=== PATIENT | female | born 1985 | race African-American/Black ===

== ENCOUNTER 2016-05-18 17:19 | Inpatient (IN) | payer MEDICAID ==
[2016-05-18 18:12] VITALS: BP 114/79
[2016-05-18] MEDS ORDERED: Morphine Sulfate 2 mg/mL 1mL Syr IVP PRN (18:47)
[2016-05-18] MEDS ORDERED: D5-0.9%NS 1,000 ML IV SCH (19:00)
[2016-05-18] MEDS: HYDROmorphone 1 mg/mL 1mL Syr IVP PRN ×2 (19:59→23:00)
[2016-05-18] MEDS ORDERED: Maalox 30 mL Cup PO PRN (20:00)
[2016-05-18] MEDS ORDERED: guaiFENesin 200 MG/10 ML UDC PO PRN (20:00)
[2016-05-18] MEDS ORDERED: Albuterol Nebulizer 2.5mg/3mL IH PRN (20:00)
[2016-05-18] MEDS: Sodium Chloride 0.9% 1,000 ML IV SCH (20:56)
[2016-05-19] MEDS: HYDROmorphone 1 mg/mL 1mL Syr IVP PRN ×7 (01:24→20:18)
[2016-05-19] MEDS: Sodium Chloride 0.9% 1,000 ML IV SCH ×2 (06:33→20:32)
[2016-05-19 07:30] LABS: HEMATOCRIT 28.8 % (35.0-45.0); HEMOGLOBIN 9.6 gm/dL (11.7-15.5); MEAN CELL VOLUME 74.3 fl (81-100); MEAN CORPUSCULAR HEMOGLOBIN 24.7 pg (27.0-31.0); MEAN CORPUSCULAR HGB CONC 33.2 pg (28.0-36.0); MEAN PLATELET VOLUME 9.1 fl; PLATELET COUNT 114 Th/cmm (150-400); RED BLOOD COUNT 3.87 Mil/cmm (3.80-5.10); RED CELL DISTRIBUTION WIDTH 16.3 % (11.5-20.0)
[2016-05-19 07:43] LABS: ALB/GLOB RATIO 1.5 (1.0-1.8); ALKALINE PHOSPHATASE 62 U/L (34-104); ANION GAP 5.3 (7.0-16.0); BILIRUBIN,TOTAL 2.1 mg/dL (0.3-1.0); BUN - UREA NITROGEN 11 mg/dL (7-25); BUN/CREATININE RATIO 18.3; CALCIUM SERUM 8.3 mg/dL (8.6-10.3); CARBON DIOXIDE 22.2 mEq/L (21.0-31.0); CHLORIDE 111 mEq/L (98-107); CREATININE - SERUM 0.6 mg/dL (0.6-1.2); GLUCOSE 153 mg/dL (70-105); LDH = LACTIC DEHYDROGENASE 786 U/L (140-271); POTASSIUM SERUM 3.5 mEq/L (3.5-5.1); SGOT 32 U/L (13-39); SGPT/ALT 13 U/L (7-52); SODIUM SERUM 135 mEq/L (136-145)
[2016-05-19] MEDS: Pantoprazole 40 mg EC Tab PO SCH (08:26)
[2016-05-19 10:51] LABS: NEUTROPHILS 82 % (40-80); TOTAL CELLS COUNTED 100
[2016-05-19 10:52] LABS: ANISOCYTOSIS 1+; MICROCYTOSIS 2+; PLATELET ESTIMATE DECREASED PLATELETS (NORMAL); PLATELET MORPHOLOGY NORMAL (NORMAL); POLYCHROMASIA 1+
--- NOTE | 2016-05-19 11:07 | Diagnostic Imaging Report ---
Portable chest x-ray History: Fever Allowing for portable technique the heart size is normal. No focal pulmonary parenchymal processes. No hilar or mediastinal abnormalities. Impression: No acute abnormalities.
[2016-05-19] MEDS ORDERED: Hydrocodone/APAP 10 mg/325 mg Tab PO PRN (11:09)
[2016-05-19] MEDS ORDERED: Pneumococcal Vaccine 0.5 mL Vial IM ONE (12:00)
[2016-05-19] MEDS ORDERED: Influenza Vaccine 0.5 mL Syr IM ONE (12:00)
--- NOTE | 2016-05-19 13:12 | Internal Medicine Prog Note ---
Internal Medicine Subjective - Subjective Service Date: 05/19/16 (HNP DICTATED [id number]) Patient seen and examined:: with staff Patient is:: awake Per staff patient is:: no adverse event Internal Medicine Objective - Results Result Diagrams: 05/19/16 06:40 05/19/16 06:40 Recent Labs: Laboratory Last Values WBC 4.0 Th/cmm (4.8-10.8) L 05/19/16 06:40 RBC 3.87 Mil/cmm (3.80-5.10) 05/19/16 06:40 Hgb 9.6 gm/dL (11.7-15.5) L 05/19/16 06:40 Hct 28.8 % (35.0-45.0) L 05/19/16 06:40 MCV 74.3 fl (81-100) L 05/19/16 06:40 MCH 24.7 pg (27.0-31.0) L 05/19/16 06:40 MCHC Differential 33.2 pg (28.0-36.0) 05/19/16 06:40 RDW 16.3 % (11.5-20.0) 05/19/16 06:40 Plt Count 114 Th/cmm (150-400) L 05/19/16 06:40 MPV 9.1 fl 05/19/16 06:40 Neutrophils (Manual) 82 % (40-80) H 05/19/16 06:40 Lymphocytes 12 % (20-50) L 05/19/16 06:40 Monocytes 6 % (2-10) 05/19/16 06:40 Nucleated RBCs 3.0 % (0-0) H 05/19/16 06:40 Platelet Estimate DECREASED PLATELETS (NORMAL) 05/19/16 06:40 Platelet Morphology NORMAL (NORMAL) 05/19/16 06:40 Polychromasia 1+ 05/19/16 06:40 Anisocytosis 1+ 05/19/16 06:40 Microcytosis 2+ 05/19/16 06:40 RBC Morph Micro Appear ABNORMAL (NORMAL) 05/19/16 06:40 Sodium 135 mEq/L (136-145) L 05/19/16 06:40 Potassium 3.5 mEq/L (3.5-5.1) 05/19/16 06:40 Chloride 111 mEq/L (98-107) H 05/19/16 06:40 Carbon Dioxide 22.2 mEq/L (21.0-31.0) 05/19/16 06:40 Anion Gap 5.3 (7.0-16.0) L 05/19/16 06:40 BUN 11 mg/dL (7-25) 05/19/16 06:40 Creatinine 0.6 mg/dL (0.6-1.2) 05/19/16 06:40 Est GFR ( Amer) > 60.0 ml/min 05/19/16 06:40 Est GFR (Non-Af Amer) > 60.0 ml/min 05/19/16 06:40 BUN/Creatinine Ratio 18.3 05/19/16 06:40 Glucose 153 mg/dL (70-105) H 05/19/16 06:40 Calcium 8.3 mg/dL (8.6-10.3) L 05/19/16 06:40 Total Bilirubin 2.1 mg/dL (0.3-1.0) H 05/19/16 06:40 AST 32 U/L (13-39) 05/19/16 06:40 ALT 13 U/L (7-52) 05/19/16 06:40 Alkaline Phosphatase 62 U/L (34-104) 05/19/16 06:40 Lactate Dehydrogenase 786 U/L (140-271) H 05/19/16 06:40 Total Protein 6.1 gm/dL (6.0-8.3) 05/19/16 06:40 Albumin 3.7 gm/dL (3.7-5.3) 05/19/16 06:40 Globulin 2.4 gm/dL 05/19/16 06:40 Albumin/Globulin Ratio 1.5 (1.0-1.8) 05/19/16 06:40 - Physical Exam Vitals and I&O: Vital Signs Temp 99 F 05/19/16 04:00 Pulse 74 05/19/16 10:05 Resp 16 05/19/16 10:05 BP 127/78 05/19/16 04:00 Pulse Ox 99 05/19/16 10:05 Intake & Output 05/18/16 05/19/16 05/19/16 18:59 06:59 18:59 Intake Total 1150 Balance 1150 Weight (lbs) 140 lb Intake: Intake, IV Amount 1000 Sodium Chloride 0.9% 1, 1000 000 ml @ 125 mls/hr IV . Q8H [facility] Rx#:[id number] Oral 150 Other: # Voids 3 Active Medications: Current Medications Acetaminophen (Tylenol) 650 mg PO Q4HR PRN PRN Reason: Pain or Fever >101 Stop: 07/17/16 19:59 Acetaminophen/Hydrocodone Bitart ([place] 10 Mg/325 Mg) 1 tab PO Q6H PRN PRN Reason: Pain (Moderate) Stop: 07/18/16 11:08 Al Hydrox/Mg Hydrox/Simethicone (Maalox) 30 ml PO Q6HR PRN PRN Reason: Constipation Stop: 07/17/16 19:59 Albuterol Sulfate (Albuterol 2.5mg/3ml Neb Ud) 2.5 mg IH Q2HR PRN PRN Reason: Shortness of Breath or Wheeze Stop: 07/17/16 19:59 Folic Acid (Folate) 1 mg PO DAILY [facility] Stop: 07/18/16 08:59 Last Admin: 05/19/16 08:25 Dose: 1 mg Guaifenesin (Robitussin) 200 mg PO Q4HR PRN PRN Reason: Cough or Congestion Stop: 07/17/16 19:59 Hydromorphone HCl (Dilaudid) 1 mg IVP Q2H PRN PRN Reason: Pain (Severe) Stop: 07/17/16 19:07 Last Admin: 05/19/16 10:36 Dose: 1 mg Hydroxyurea (Hydrea) 500 mg PO DAILY [facility] Stop: 07/18/16 08:59 Last Admin: 05/19/16 08:25 Dose: 500 mg Sodium Chloride (Nacl 0.9%) 1,000 mls @ 125 mls/hr IV .Q8H [facility] Stop: 07/17/16 19:14 Last Admin: 05/19/16 06:33 Dose: 125 mls/hr Ondansetron HCl (Zofran) 4 mg IV Q6H PRN PRN Reason: Nausea / Vomiting Stop: 07/17/16 19:05 Last Admin: 05/19/16 10:01 Dose: 4 mg Ondansetron HCl (Zofran) 4 mg IV Q8H PRN PRN Reason: Nausea / Vomiting Stop: 07/17/16 19:59 Pantoprazole Sodium (Protonix) 40 mg PO DAILY [facility] Stop: 07/18/16 08:59 Last Admin: 05/19/16 08:26 Dose: 40 mg Zolpidem Tartrate (Ambien) 10 mg PO HS PRN PRN Reason: Insomnia Stop: 07/17/16 19:59 Last Admin: 05/18/16 22:27 Dose: 10 mg Internal Medicine Assmt/Plan - Assessment Assessment: SICKLE CELL CRISIS ANEMIA
--- NOTE | 2016-05-19 14:04 | Consultation ---
REFERRING PHYSICIAN: Dr. Greene. REASON FOR CONSULTATION: Painful crisis. HISTORY OF PRESENT ILLNESS: The patient is a 31-year-old female who was admitted because of generalized body pain. She stated that she has pain in the back extending from the left shoulder down to the sacral area and also pain in both lower extremities. 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 FAMILY HISTORY: Mother ____. Father has sickle cell trait. The patient does not have any records in our hospital and she stated that she was followed by physician in [place] and [place] in the past. MEDICATIONS AT HOME: Ibuprofen and folic acid. PHYSICAL EXAMINATION: GENERAL: Awake, alert, and oriented, not in distress. VITAL SIGNS: Stable. HEENT: Atraumatic, no peripheral lymphadenopathy. CHEST: Clear. ABDOMEN: Soft. EXTREMITIES: Unremarkable, scar in the right hip from previous surgery. LABORATORY DATA: White count 4, hemoglobin 9.6, platelets ____, bilirubin 2.1. Creatinine 0.6, LDH 786. ASSESSMENT: Sickle cell disease by history, presented with painful crisis and hemolytic anemia. Continue folic acid, ____ Dilaudid. The patient was offered hydroxyurea, however, she refused and she said that she was offered ____. She was ____ medicine and follow the hemolysis parameters and continue the current management. We will obtain chest x-ray and urinalysis. Thank you Dr. Greene for the opportunity to participate in the care of this interesting case. [facility]# [id number]
[2016-05-19] MEDS ORDERED: Magnesium Citrate 1.75 GM/300 mL Bottle PO ONE (15:26)
[2016-05-19] MEDS ORDERED: Morphine Sulfate 2 mg/mL 1mL Syr IVP PRN (15:26)
--- NOTE | 2016-05-19 15:55 | History & Physical ---
CHIEF COMPLAINT: Sickle cell crisis. HISTORY OF PRESENT ILLNESS: This is a 31-year-old -[place] female who is a direct admission from [facility]. According to the patient, she just came from the ____. She states that she has been having bilateral knee and lower back pain. The patient stated that she took [id number] Motrin and did not relieve her pain. She denied any fevers, any chest pain, any shortness of breath. For this reason, the patient is now admitted to the med/surg unit. PAST MEDICAL HISTORY: Thalassemia, sickle cell anemia, septic necrosis of neck of femur. PAST SURGICAL HISTORY: Total hip replacement. ALLERGIES: No drug allergies. MEDICATIONS: Please see medication reconciliation sheet. FAMILY HISTORY: Noncontributory. REVIEW OF SYSTEMS: GENERAL: Denies any fevers, any chills, but complains of bodyaches. CARDIOVASCULAR: Denies any chest pain, any palpitations. RESPIRATORY: Denies any shortness of breath, any wheezing or cough. GASTROINTESTINAL: Denies nausea, vomiting, abdominal pain. GENITOURINARY: She denies any dysuria. All other systems are reviewed by me and all are negative. PHYSICAL EXAMINATION: GENERAL: The patient is well developed, well nourished, in no acute pain. VITAL SIGNS: Temperature 99, heart rate ____, blood pressure 127/78, respirations 18, O2 99%. HEENT: Head; normocephalic, atraumatic. NECK: Supple. No mass. LUNGS: Clear bilaterally upon auscultation. HEART: Regular rate and rhythm. No murmurs, no gallops. SKIN: Intact, warm and dry to touch. ABDOMEN: Soft, nontender, nondistended. Positive bowel sounds in all 4 quadrants. LABORATORY DATA: WBC 4.0, H and H 9.6 and 28.8, platelet of 114. Sodium 135, potassium 3.5, chloride 111, BUN 11, creatinine 0.6. Lactic dehydrogenase is 786. DIAGNOSTICS: The patient had a chest x-ray done and the impression is, no acute abnormalities. ASSESSMENT: Acute sickle cell status, sickle cell anemia, thalassemia, hyponatremia, hypocalcemia. PLAN: The patient will be admitted to the med/surg unit. The patient to have a consultation with Dr. Starkey. CBC and BMP will be monitored. Pain management will be done as well. We will continue to monitor the patient. JOB# [id number]
[2016-05-19 18:08] LABS: URINE BILIRUBIN NEGATIVE (NEGATIVE); URINE BLOOD TRACE (NEGATIVE); URINE COLOR YELLOW; URINE GLUCOSE (UA) NEGATIVE (NEGATIVE); URINE KETONE TRACE mg/dL (NEGATIVE); URINE PH 5.5; URINE PROTEIN TRACE mg/dL (NEGATIVE)
[2016-05-19 18:09] LABS: URINE BACTERIA FEW /hpf (NONE SEEN); URINE EPITHELIAL CELLS FEW /lpf (FEW); URINE RBC 0-2 /hpf (0-5); URINE WBC 0-2 /hpf (0-5)
--- NOTE | 2016-05-19 23:56 | Admit Criteria Form ---
Admit Criteria Forms - Admit Criteria Admit Criteria Met?: Yes
[2016-05-20] MEDS: HYDROmorphone 1 mg/mL 1mL Syr IVP PRN ×5 (04:21→21:33)
[2016-05-20] MEDS: Sodium Chloride 0.9% 1,000 ML IV SCH ×3 (04:25→21:40)
[2016-05-20 07:39] LABS: HEMATOCRIT 27.7 % (35.0-45.0); HEMOGLOBIN 9.1 gm/dL (11.7-15.5); MEAN CELL VOLUME 74.9 fl (81-100); MEAN CORPUSCULAR HEMOGLOBIN 24.6 pg (27.0-31.0); MEAN CORPUSCULAR HGB CONC 32.8 pg (28.0-36.0); MEAN PLATELET VOLUME 9.4 fl; PLATELET COUNT 96 Th/cmm (150-400); RED CELL DISTRIBUTION WIDTH 15.9 % (11.5-20.0)
[2016-05-20] MEDS: Pantoprazole 40 mg EC Tab PO SCH (08:09)
[2016-05-20 08:26] LABS: ALB/GLOB RATIO 1.5 (1.0-1.8); ALKALINE PHOSPHATASE 60 U/L (34-104); BUN - UREA NITROGEN 6 mg/dL (7-25); CALCIUM SERUM 8.1 mg/dL (8.6-10.3); CARBON DIOXIDE 24.5 mEq/L (21.0-31.0); CHLORIDE 110 mEq/L (98-107); CREATININE - SERUM 0.6 mg/dL (0.6-1.2); GLUCOSE 113 mg/dL (70-105); LDH = LACTIC DEHYDROGENASE 621 U/L (140-271); POTASSIUM SERUM 3.5 mEq/L (3.5-5.1); SGOT 21 U/L (13-39); SGPT/ALT 11 U/L (7-52); SODIUM SERUM 136 mEq/L (136-145)
[2016-05-20 09:12] LABS: BAND NEUTROPHILE 1 % (0-10); NEUTROPHILS 63 % (40-80); TOTAL CELLS COUNTED 100
[2016-05-20 09:13] LABS: ANISOCYTOSIS 1+; MICROCYTOSIS 2+; PLATELET ESTIMATE DECREASED PLATELETS (NORMAL); PLATELET MORPHOLOGY GIANT PLATELETS SEEN (NORMAL); POIKILOCYTOSIS 1+; POLYCHROMASIA 1+
[2016-05-20 10:16] LABS: FOLIC ACID 10.1 ng/mL (>3.0)
[2016-05-20] MEDS ORDERED: Fleet Enema 135 mL RC PRN (13:24)
--- NOTE | 2016-05-20 13:26 | Internal Medicine Prog Note ---
Internal Medicine Subjective - Subjective Patient seen and examined:: with staff, chart reviewed Patient is:: awake, other (in pain , mother at bedside) Patient Complaints of:: LBP, headache, bloated Per staff patient is:: poor appetite Internal Medicine Objective - Results Result Diagrams: 05/20/16 06:40 05/20/16 06:40 Recent Labs: Laboratory Last Values WBC 4.0 Th/cmm (4.8-10.8) L 05/20/16 06:40 RBC 3.70 Mil/cmm (3.80-5.10) L 05/20/16 06:40 Hgb 9.1 gm/dL (11.7-15.5) L 05/20/16 06:40 Hct 27.7 % (35.0-45.0) L 05/20/16 06:40 MCV 74.9 fl (81-100) L 05/20/16 06:40 MCH 24.6 pg (27.0-31.0) L 05/20/16 06:40 MCHC Differential 32.8 pg (28.0-36.0) 05/20/16 06:40 RDW 15.9 % (11.5-20.0) 05/20/16 06:40 Plt Count 96 Th/cmm (150-400) L 05/20/16 06:40 MPV 9.4 fl 05/20/16 06:40 Band Neutrophils % 1 % (0-10) 05/20/16 06:40 Neutrophils (Manual) 63 % (40-80) 05/20/16 06:40 Lymphocytes 23 % (20-50) 05/20/16 06:40 Monocytes 13 % (2-10) H 05/20/16 06:40 Nucleated RBCs 1.0 % (0-0) H 05/20/16 06:40 Platelet Estimate DECREASED PLATELETS (NORMAL) 05/20/16 06:40 Platelet Morphology GIANT PLATELETS SEEN (NORMAL) 05/20/16 06:40 Polychromasia 1+ 05/20/16 06:40 Poikilocytosis 1+ 05/20/16 06:40 Anisocytosis 1+ 05/20/16 06:40 Microcytosis 2+ 05/20/16 06:40 RBC Morph Micro Appear ABNORMAL (NORMAL) 05/20/16 06:40 Sodium 136 mEq/L (136-145) 05/20/16 06:40 Potassium 3.5 mEq/L (3.5-5.1) 05/20/16 06:40 Chloride 110 mEq/L (98-107) H 05/20/16 06:40 Carbon Dioxide 24.5 mEq/L (21.0-31.0) 05/20/16 06:40 Anion Gap 5.0 (7.0-16.0) L 05/20/16 06:40 BUN 6 mg/dL (7-25) L 05/20/16 06:40 Creatinine 0.6 mg/dL (0.6-1.2) 05/20/16 06:40 Est GFR ( Amer) > 60.0 ml/min 05/20/16 06:40 Est GFR (Non-Af Amer) > 60.0 ml/min 05/20/16 06:40 BUN/Creatinine Ratio 10.0 05/20/16 06:40 Glucose 113 mg/dL (70-105) H 05/20/16 06:40 Calcium 8.1 mg/dL (8.6-10.3) L 05/20/16 06:40 Total Bilirubin 2.0 mg/dL (0.3-1.0) H 05/20/16 06:40 AST 21 U/L (13-39) 05/20/16 06:40 ALT 11 U/L (7-52) 05/20/16 06:40 Alkaline Phosphatase 60 U/L (34-104) 05/20/16 06:40 Lactate Dehydrogenase 621 U/L (140-271) H 05/20/16 06:40 Total Protein 5.5 gm/dL (6.0-8.3) L 05/20/16 06:40 Albumin 3.3 gm/dL (3.7-5.3) L 05/20/16 06:40 Globulin 2.2 gm/dL 05/20/16 06:40 Albumin/Globulin Ratio 1.5 (1.0-1.8) 05/20/16 06:40 Vitamin B12 605 pg/mL (211-946) 05/19/16 06:40 Folic Acid 10.1 ng/mL (>3.0) 05/19/16 06:40 Urine Source CLEAN C 05/19/16 17:00 Urine Color YELLOW 05/19/16 17:00 Urine Clarity CLEAR (CLEAR) 05/19/16 17:00 Urine pH 5.5 05/19/16 17:00 Ur Specific [place] 1.015 (1.005-1.030) 05/19/16 17:00 Urine Protein TRACE mg/dL (NEGATIVE) 05/19/16 17:00 Urine Glucose (UA) NEGATIVE mg/dL (NEGATIVE) 05/19/16 17:00 Urine Ketones TRACE mg/dL (NEGATIVE) 05/19/16 17:00 Urine Blood TRACE (NEGATIVE) 05/19/16 17:00 Urine Nitrate NEGATIVE (NEGATIVE) 05/19/16 17:00 Urine Bilirubin NEGATIVE (NEGATIVE) 05/19/16 17:00 Urine Urobilinogen 2.0 E.U./dL (0.2 - 1.0) 05/19/16 17:00 Ur Leukocyte Esterase NEGATIVE (NEGATIVE) 05/19/16 17:00 Urine RBC 0-2 /hpf (0-5) 05/19/16 17:00 Urine WBC 0-2 /hpf (0-5) 05/19/16 17:00 Ur Epithelial Cells FEW /lpf (FEW) 05/19/16 17:00 Urine Bacteria FEW /hpf (NONE SEEN) 05/19/16 17:00 - Physical Exam Vitals and I&O: Vital Signs Temp 97.9 F 05/20/16 08:00 Pulse 76 05/20/16 08:00 Resp 17 05/20/16 08:00 BP 138/77 05/20/16 08:00 Pulse Ox 100 05/20/16 08:00 Intake & Output 05/19/16 05/20/16 05/20/16 18:59 06:59 18:59 Intake Total 1800 800.054 8874 Output Total 200 Balance 1600 368.275 2249 Intake: Intake, IV Amount 1000 314.542 2858 Sodium Chloride 0.9% 1, 1000 857.516 3029 000 ml @ 125 mls/hr IV . Q8H [facility] Rx#:[id number] Oral 800 Output: Urine 200 Other: # Voids 2 Active Medications: Current Medications Acetaminophen (Tylenol) 650 mg PO Q4HR PRN PRN Reason: Pain or Fever >101 Stop: 07/17/16 19:59 Last Admin: 05/20/16 11:42 Dose: 650 mg Acetaminophen/Hydrocodone Bitart ([place] 10 Mg/325 Mg) 1 tab PO Q6H PRN PRN Reason: Pain (Moderate) Stop: 07/18/16 11:08 Last Admin: 05/19/16 17:06 Dose: 1 tab Al Hydrox/Mg Hydrox/Simethicone (Maalox) 30 ml PO Q6HR PRN PRN Reason: Constipation Stop: 07/17/16 19:59 Albuterol Sulfate (Albuterol 2.5mg/3ml Neb Ud) 2.5 mg IH Q2HR PRN PRN Reason: Shortness of Breath or Wheeze Stop: 07/17/16 19:59 Bisacodyl (Dulcolax 10 Mg Supp) 10 mg RC X1 ONE Stop: 05/20/16 13:24 Bisacodyl (Dulcolax 10 Mg Supp) 10 mg RC DAILY PRN PRN Reason: Constipation Stop: 07/19/16 13:22 Docusate Sodium (Colace) 250 mg PO BID [facility] Stop: 07/18/16 16:59 Last Admin: 05/20/16 08:09 Dose: 250 mg Folic Acid (Folate) 1 mg PO DAILY [facility] Stop: 07/18/16 08:59 Last Admin: 05/20/16 08:09 Dose: 1 mg Guaifenesin (Robitussin) 200 mg PO Q4HR PRN PRN Reason: Cough or Congestion Stop: 07/17/16 19:59 Hydromorphone HCl (Dilaudid) 1 mg IVP Q2H PRN PRN Reason: Pain (Severe) Stop: 07/17/16 19:07 Last Admin: 05/20/16 13:14 Dose: 1 mg Hydroxyurea (Hydrea) 500 mg PO DAILY [facility] Stop: 07/18/16 08:59 Last Admin: 05/20/16 08:09 Dose: 500 mg Sodium Chloride (Nacl 0.9%) 1,000 mls @ 125 mls/hr IV .Q8H [facility] Stop: 07/17/16 19:14 Last Admin: 05/20/16 11:49 Dose: 125 mls/hr Morphine Sulfate (Morphine) 2 mg IVP Q4HR PRN PRN Reason: Pain (Severe) Stop: 07/18/16 15:25 Last Admin: 05/19/16 16:10 Dose: 2 mg Ondansetron HCl (Zofran) 4 mg IV Q6H PRN PRN Reason: Nausea / Vomiting Stop: 07/17/16 19:05 Last Admin: 05/19/16 20:21 Dose: 4 mg Ondansetron HCl (Zofran) 4 mg IV Q8H PRN PRN Reason: Nausea / Vomiting Stop: 07/17/16 19:59 Pantoprazole Sodium (Protonix) 40 mg PO DAILY [facility] Stop: 07/18/16 08:59 Last Admin: 05/20/16 08:09 Dose: 40 mg Sodium Phosphate (Fleet Enema) 135 ml RC PRN PRN PRN Reason: Constipation Stop: 07/19/16 13:23 Zolpidem Tartrate (Ambien) 10 mg PO HS PRN PRN Reason: Insomnia Stop: 07/17/16 19:59 Last Admin: 05/18/16 22:27 Dose: 10 mg General: alert HEENT: NC/AT, PERRLA Neck: Supple, No JVD Lungs: CTAB Cardiovascular: RRR, Normal S1, Normal S2 Abdomen: soft non-tender, globular, distended Extremities: excoriation Neurological: no change Internal Medicine Assmt/Plan - Assessment Assessment: ABDOMINAL pain acute sickle cell crisis constipation bicytopenia - Plan Plan: pain control ivf heme fu laxative dw rn and pt and mother
[2016-05-21 07:44] LABS: HEMATOCRIT 27.8 % (35.0-45.0); HEMOGLOBIN 9.1 gm/dL (11.7-15.5); MEAN CELL VOLUME 74.1 fl (81-100); MEAN CORPUSCULAR HEMOGLOBIN 24.2 pg (27.0-31.0); MEAN CORPUSCULAR HGB CONC 32.6 pg (28.0-36.0); MEAN PLATELET VOLUME 7.4 fl; PLATELET COUNT 96 Th/cmm (150-400); RED BLOOD COUNT 3.75 Mil/cmm (3.80-5.10); WHITE BLOOD COUNT 4.2 Th/cmm (4.8-10.8)
[2016-05-21 08:00] LABS: ALB/GLOB RATIO 1.4 (1.0-1.8); ALKALINE PHOSPHATASE 66 U/L (34-104); ANION GAP 6.7 (7.0-16.0); BILIRUBIN,TOTAL 1.6 mg/dL (0.3-1.0); BUN - UREA NITROGEN 4 mg/dL (7-25); CALCIUM SERUM 8.4 mg/dL (8.6-10.3); CARBON DIOXIDE 22.5 mEq/L (21.0-31.0); CHLORIDE 110 mEq/L (98-107); CREATININE - SERUM 0.5 mg/dL (0.6-1.2); GLUCOSE 144 mg/dL (70-105); MAGNESIUM 1.8 mg/dL (1.9-2.7); POTASSIUM SERUM 3.2 mEq/L (3.5-5.1); SGOT 16 U/L (13-39); SGPT/ALT 11 U/L (7-52); SODIUM SERUM 136 mEq/L (136-145)
[2016-05-21 08:38] LABS: ANISOCYTOSIS 1+; BAND NEUTROPHILE 2 % (0-10); MICROCYTOSIS 2+; NEUTROPHILS 69 % (40-80); PLATELET ESTIMATE DECREASED PLATELETS (NORMAL); PLATELET MORPHOLOGY NORMAL (NORMAL); TOTAL CELLS COUNTED 100
[2016-05-21] MEDS: Pantoprazole 40 mg EC Tab PO SCH (09:22)
[2016-05-21] MEDS: Sodium Chloride 0.9% 1,000 ML IV SCH (09:25)
[2016-05-21] MEDS ORDERED: Potassium Chloride 20 mEq ER Tab PO ONE ×2 (10:24→12:11)
--- NOTE | 2016-05-21 12:28 | Internal Medicine Prog Note ---
Internal Medicine Subjective - Subjective Service Date: 05/21/16 (awake, c/o pain states that it is hard for her to get up. ) Patient seen and examined:: with staff Patient is:: awake Per staff patient is:: other (pain) Internal Medicine Objective - Results Result Diagrams: 05/21/16 06:40 05/21/16 06:40 Recent Labs: Laboratory Last Values WBC 4.2 Th/cmm (4.8-10.8) L 05/21/16 06:40 RBC 3.75 Mil/cmm (3.80-5.10) L 05/21/16 06:40 Hgb 9.1 gm/dL (11.7-15.5) L 05/21/16 06:40 Hct 27.8 % (35.0-45.0) L 05/21/16 06:40 MCV 74.1 fl (81-100) L 05/21/16 06:40 MCH 24.2 pg (27.0-31.0) L 05/21/16 06:40 MCHC Differential 32.6 pg (28.0-36.0) 05/21/16 06:40 RDW 16.0 % (11.5-20.0) 05/21/16 06:40 Plt Count 96 Th/cmm (150-400) L 05/21/16 06:40 MPV 7.4 fl 05/21/16 06:40 Band Neutrophils % 2 % (0-10) 05/21/16 06:40 Neutrophils (Manual) 69 % (40-80) 05/21/16 06:40 Lymphocytes 24 % (20-50) 05/21/16 06:40 Monocytes 5 % (2-10) 05/21/16 06:40 Nucleated RBCs 1.0 % (0-0) H 05/20/16 06:40 Platelet Estimate DECREASED PLATELETS (NORMAL) 05/21/16 06:40 Platelet Morphology NORMAL (NORMAL) 05/21/16 06:40 Polychromasia 1+ 05/20/16 06:40 Poikilocytosis 1+ 05/20/16 06:40 Anisocytosis 1+ 05/21/16 06:40 Microcytosis 2+ 05/21/16 06:40 RBC Morph Micro Appear ABNORMAL (NORMAL) 05/21/16 06:40 Sodium 136 mEq/L (136-145) 05/21/16 06:40 Potassium 3.2 mEq/L (3.5-5.1) L 05/21/16 06:40 Chloride 110 mEq/L (98-107) H 05/21/16 06:40 Carbon Dioxide 22.5 mEq/L (21.0-31.0) 05/21/16 06:40 Anion Gap 6.7 (7.0-16.0) L 05/21/16 06:40 BUN 4 mg/dL (7-25) L 05/21/16 06:40 Creatinine 0.5 mg/dL (0.6-1.2) L 05/21/16 06:40 Est GFR ( Amer) > 60.0 ml/min 05/21/16 06:40 Est GFR (Non-Af Amer) > 60.0 ml/min 05/21/16 06:40 BUN/Creatinine Ratio 8.0 05/21/16 06:40 Glucose 144 mg/dL (70-105) H 05/21/16 06:40 Calcium 8.4 mg/dL (8.6-10.3) L 05/21/16 06:40 Magnesium 1.8 mg/dL (1.9-2.7) L 05/21/16 06:40 Total Bilirubin 1.6 mg/dL (0.3-1.0) H 05/21/16 06:40 AST 16 U/L (13-39) 05/21/16 06:40 ALT 11 U/L (7-52) 05/21/16 06:40 Alkaline Phosphatase 66 U/L (34-104) 05/21/16 06:40 Lactate Dehydrogenase 621 U/L (140-271) H 05/20/16 06:40 Total Protein 5.6 gm/dL (6.0-8.3) L 05/21/16 06:40 Albumin 3.3 gm/dL (3.7-5.3) L 05/21/16 06:40 Globulin 2.3 gm/dL 05/21/16 06:40 Albumin/Globulin Ratio 1.4 (1.0-1.8) 05/21/16 06:40 Vitamin B12 605 pg/mL (211-946) 05/19/16 06:40 Folic Acid 10.1 ng/mL (>3.0) 05/19/16 06:40 Urine Source CLEAN C 05/19/16 17:00 Urine Color YELLOW 05/19/16 17:00 Urine Clarity CLEAR (CLEAR) 05/19/16 17:00 Urine pH 5.5 05/19/16 17:00 Ur Specific [place] 1.015 (1.005-1.030) 05/19/16 17:00 Urine Protein TRACE mg/dL (NEGATIVE) 05/19/16 17:00 Urine Glucose (UA) NEGATIVE mg/dL (NEGATIVE) 05/19/16 17:00 Urine Ketones TRACE mg/dL (NEGATIVE) 05/19/16 17:00 Urine Blood TRACE (NEGATIVE) 05/19/16 17:00 Urine Nitrate NEGATIVE (NEGATIVE) 05/19/16 17:00 Urine Bilirubin NEGATIVE (NEGATIVE) 05/19/16 17:00 Urine Urobilinogen 2.0 E.U./dL (0.2 - 1.0) 05/19/16 17:00 Ur Leukocyte Esterase NEGATIVE (NEGATIVE) 05/19/16 17:00 Urine RBC 0-2 /hpf (0-5) 05/19/16 17:00 Urine WBC 0-2 /hpf (0-5) 05/19/16 17:00 Ur Epithelial Cells FEW /lpf (FEW) 05/19/16 17:00 Urine Bacteria FEW /hpf (NONE SEEN) 05/19/16 17:00 - Physical Exam Vitals and I&O: Vital Signs Temp 98.2 F 05/21/16 12:00 Pulse 64 05/21/16 12:00 Resp 18 05/21/16 12:00 BP 114/73 05/21/16 12:00 Pulse Ox 99 05/21/16 12:00 Intake & Output 05/20/16 05/21/16 05/21/16 18:59 06:59 18:59 Intake Total 1000 1100 1000 Balance 1000 1100 1000 Intake: Intake, IV Amount 1000 1000 1000 Sodium Chloride 0.9% 1, 1000 1000 1000 000 ml @ 125 mls/hr IV . Q8H [facility] Rx#:[id number] Oral 100 Other: # Voids 3 # Bowel Movements 1 Active Medications: Current Medications Acetaminophen (Tylenol) 650 mg PO Q4HR PRN PRN Reason: Pain or Fever >101 Stop: 07/17/16 19:59 Last Admin: 05/21/16 06:00 Dose: 650 mg Acetaminophen/Hydrocodone Bitart ([place] 10 Mg/325 Mg) 1 tab PO Q6H PRN PRN Reason: Pain (Moderate) Stop: 07/18/16 11:08 Last Admin: 05/19/16 17:06 Dose: 1 tab Al Hydrox/Mg Hydrox/Simethicone (Maalox) 30 ml PO Q6HR PRN PRN Reason: Constipation Stop: 07/17/16 19:59 Albuterol Sulfate (Albuterol 2.5mg/3ml Neb Ud) 2.5 mg IH Q2HR PRN PRN Reason: Shortness of Breath or Wheeze Stop: 07/17/16 19:59 Bisacodyl (Dulcolax 10 Mg Supp) 10 mg RC DAILY PRN PRN Reason: Constipation Stop: 07/19/16 13:22 Bisacodyl (Dulcolax 5 Mg Ec Tab) 10 mg PO DAILY [facility] Stop: 07/20/16 08:59 Last Admin: 05/21/16 09:22 Dose: 10 mg Docusate Sodium (Colace) 250 mg PO BID [facility] Stop: 07/18/16 16:59 Last Admin: 05/21/16 09:21 Dose: 250 mg Folic Acid (Folate) 1 mg PO DAILY [facility] Stop: 07/18/16 08:59 Last Admin: 05/21/16 09:22 Dose: 1 mg Guaifenesin (Robitussin) 200 mg PO Q4HR PRN PRN Reason: Cough or Congestion Stop: 07/17/16 19:59 Hydromorphone HCl (Dilaudid) 1 mg IVP Q2H PRN PRN Reason: Pain (Severe) Stop: 07/17/16 19:07 Last Admin: 05/20/16 21:33 Dose: 1 mg Hydroxyurea (Hydrea) 500 mg PO DAILY [facility] Stop: 07/18/16 08:59 Last Admin: 05/21/16 09:21 Dose: 500 mg Sodium Chloride (Nacl 0.9%) 1,000 mls @ 125 mls/hr IV .Q8H [facility] Stop: 07/17/16 19:14 Last Admin: 05/21/16 09:25 Dose: 125 mls/hr Morphine Sulfate (Morphine) 2 mg IVP Q4HR PRN PRN Reason: Pain (Severe) Stop: 07/18/16 15:25 Last Admin: 05/19/16 16:10 Dose: 2 mg Ondansetron HCl (Zofran) 4 mg IV Q8H PRN PRN Reason: Nausea / Vomiting Stop: 07/17/16 19:59 Pantoprazole Sodium (Protonix) 40 mg PO DAILY [facility] Stop: 07/18/16 08:59 Last Admin: 05/21/16 09:22 Dose: 40 mg Potassium Chloride (Klor-Con) 40 meq PO X1 ONE Stop: 05/21/16 12:12 Sodium Phosphate (Fleet Enema) 135 ml RC DAILY PRN PRN Reason: If Dulcolax not effective Stop: 07/19/16 13:23 Last Admin: 05/21/16 04:47 Dose: 135 ml Zolpidem Tartrate (Ambien) 10 mg PO HS PRN PRN Reason: Insomnia Stop: 07/17/16 19:59 Last Admin: 05/18/16 22:27 Dose: 10 mg General: alert HEENT: NC/AT Neck: Supple Lungs: CTAB Cardiovascular: RRR, Normal S1, Normal S2, without murmur Abdomen: soft non-tender, non-distended, positive bowel sound Neurological: no change Internal Medicine Assmt/Plan - Assessment Assessment: ANEMIA acute sickle cell crisis constipation - Plan Plan: pain mgmt dc planning in am replace k+ cbc/bmp in am
[2016-05-21] MEDS ORDERED: HYDROmorphone 1 mg/mL 1mL Syr IVP PRN (13:02)
[2016-05-21] MEDS ORDERED: VTE Chemical Prophylaxis Screen/Admission MC PRN (16:27)
[2016-05-22 06:24] LABS: MEAN CELL VOLUME 73.3 fl (81-100); MEAN CORPUSCULAR HEMOGLOBIN 24.3 pg (27.0-31.0); MEAN CORPUSCULAR HGB CONC 33.2 pg (28.0-36.0); MEAN PLATELET VOLUME 8.3 fl; RED BLOOD COUNT 3.68 Mil/cmm (3.80-5.10); RED CELL DISTRIBUTION WIDTH 15.9 % (11.5-20.0); WHITE BLOOD COUNT 4.2 Th/cmm (4.8-10.8)
[2016-05-22 06:41] LABS: ANION GAP 8.3 (7.0-16.0); BUN - UREA NITROGEN 6 mg/dL (7-25); BUN/CREATININE RATIO 8.6; CALCIUM SERUM 8.4 mg/dL (8.6-10.3); CARBON DIOXIDE 23.2 mEq/L (21.0-31.0); CHLORIDE 110 mEq/L (98-107); CREATININE - SERUM 0.7 mg/dL (0.6-1.2); GLUCOSE 102 mg/dL (70-105); PLATELET COUNT 118 Th/cmm (150-400); POTASSIUM SERUM 3.5 mEq/L (3.5-5.1); SODIUM SERUM 138 mEq/L (136-145)
[2016-05-22 08:54] LABS: ANISOCYTOSIS 1+; BAND NEUTROPHILE 2 % (0-10); EOSINOPHIL 3 % (0-5); MICROCYTOSIS 3+; NEUTROPHILS 68 % (40-80); PLATELET ESTIMATE DECREASED PLATELETS (NORMAL); PLATELET MORPHOLOGY NORMAL (NORMAL); POIKILOCYTOSIS 1+; TOTAL CELLS COUNTED 100
[2016-05-22] MEDS: Pantoprazole 40 mg EC Tab PO SCH (08:59)
--- NOTE | 2016-05-22 23:18 | Discharge Summary ---
CHIEF COMPLAINT: Generalized body ache. FINAL DIAGNOSES: Acute sickle cell crisis, sickle cell anemia, thalassemia, hyponatremia and hypocalcemia. HISTORY OF PRESENT ILLNESS: This is a 31-year-old -[place] female seen initially from [facility] and transferred for further care and treatment with generalized body ache, knee pain and back pain. The patient was getting high dose of Dilaudid and she was still in pain. PHYSICAL EXAMINATION: VITAL SIGNS: Blood pressure 127/____, respirations 17, pulse 55 and temperature is 76. GENERAL: A young female, in no acute distress. NECK: Supple. LUNGS: Equal breath sounds. Otherwise, clear to auscultation. HEART: Regular rate and rhythm without appreciable murmur. ABDOMEN: Soft and nontender. EXTREMITIES: No clubbing, cyanosis or edema. HOSPITAL COURSE: The patient admitted to medical floor, continue aggressive IV hydration. The patient was seen by hematology and prescribed ____, but the patient refused including ____ pain medications were given. The patient was also given laxative. She has been ____ cleared for discharge. CONDITION ON DISCHARGE: Fair. DISCHARGE INSTRUCTIONS: The patient to continue current medical regimen. The patient to follow with her general machinist upon discharge. JOB# [id number]
== END 2016-05-22 15:35 | disposition home or self-care (01) | DRG 662 ==
LOC: MSI 17:19
PROVIDERS: ADMIT Internal Medicine; ATTEND Internal Medicine
PROC: 3E0234Z Introduction of Serum, Toxoid and Vaccine into Muscle, Percutaneous Approach (ICD-10-PCS; principal; 2016-05-19)
DX: D57.419 Sickle-cell thalassemia, unspecified, with crisis (principal); E87.1 Hypo-osmolality and hyponatremia; E83.51 Hypocalcemia; Z96.641 Presence of right artificial hip joint; K59.00 Constipation, unspecified; Z23 Encounter for immunization; Z83.2 Family history of diseases of the blood and blood-forming organs and certain disorders involving the immune mechanism
CPT/HCPCS: 36415-UA; 71010-TC; 80048-TC; 80053-TC; 81001-TC; 82607-90; 82746-90; 83615-TC; 83735-TC; 85007-TC; 85027-TC; 94760; J1170; J1200; J2270; J2405; J7030; J7042; Z7610